=== PATIENT | male | born 1995 | race African-American/Black ===

== ENCOUNTER 2017-10-02 20:08 | Inpatient (IN) | payer OTHER ==
[~2017-10-02] VITALS: Ht 175.3 cm; Wt 82.0 kg
[2017-10-02] MEDS ORDERED: SODIUM CHLORIDE 0.9% 1,000 ML IV ONE (20:10)
[2017-10-02] MEDS ORDERED: PANTOPRAZOLE 40 MG IV ONE (20:19)
[2017-10-02] MEDS ORDERED: ONDANSETRON 2MG/ML, 2ML ONE (20:19)
[2017-10-02 20:26] LABS: BASOPHILS % (AUTO) 0 % (0-1); EOSINOPHILS % (AUTO) 0 % (1-7); LYMPHOCYTES # (AUTO) 0.76 x10^3/uL (1-3.4); LYMPHOCYTES % (AUTO) 8 % (22-44); MD NO; MEAN CORPUSCULAR HEMOGLOBIN 25.9 pg (27.5-34.5); MEAN CORPUSCULAR HGB CONC 31.9 g/dL (33.2-36.2); MEAN CORPUSCULAR VOLUME 81.3 fL (81-97); MEAN PLATELET VOLUME 7.7 fL (7.4-10.4); MONOCYTES # (AUTO) 0.34 x10^3/uL (0.2-0.8); MONOCYTES % (AUTO) 4 % (2-9); NEUTROPHILS # (AUTO) 8.23 x10^3/uL (1.8-6.8); NEUTROPHILS % (AUTO) 88 % (42-75); PLATELET COUNT 260 x10^3/uL (130-400); RED BLOOD COUNT 5.94 x10^6/uL (4.38-5.82); RED CELL DISTRIBUTION WIDTH 15.6 % (9.4-14.8)
[2017-10-02] MEDS: PLEASE ENTER ALLERGIES MC SCH (20:27)
[2017-10-02] MEDS ORDERED: PANTOPRAZOLE 40 MG IV IVP ONE (20:30)
[2017-10-02] MEDS ORDERED: ONDANSETRON 2MG/ML, 2ML IVPush ONE (20:30)
[2017-10-02] MEDS ORDERED: SODIUM CHLORIDE 0.9% 1,000ML IVBOLUS ONE (20:30)
[2017-10-02 20:34] LABS: INTERNATIONAL NORMALIZED RATIO 1.16 (0.93-1.1); PROTHROMBIN TIME 11.9 Seconds (9.6-11.5)
[2017-10-02 20:37] LABS: ALANINE AMINOTRANSFERASE 46 U/L (12-78); ALBUMIN 4.4 g/dL (3.4-5.0); ANION GAP 16 mmol/L (5-15); CALCIUM 8.5 mg/dL (8.5-10.1); CHLORIDE 109 mmol/L (98-107); CREATININE 1.71 mg/dL (0.7-1.3); SALICYLATE LEVEL < 1.7 mg/dL (2.8-20.0)
[2017-10-02 20:39] LABS: ALKALINE PHOSPHATASE 90 U/L (45-117); BILIRUBIN,TOTAL 0.2 mg/dL (0.2-1.0); TOTAL PROTEIN 7.5 g/dL (6.4-8.2)
[2017-10-02 20:42] LABS: ACETAMINOPHEN < 2 mcg/mL (10-30)
[2017-10-02] MEDS ORDERED: POLYETHYLENE GLYCOL 17 GM PACKET PO PRN (22:00)
[2017-10-02] MEDS ORDERED: BISACODYL 10 MG SUPP PR PRN (22:00)
[2017-10-02] MEDS ORDERED: HEPARIN 5,000 UNITS/ML, 1ML SQ SCH (22:00)
[2017-10-02] MEDS ORDERED: ONDANSETRON 2MG/ML, 2ML IVPush PRN (22:00)
[2017-10-02 22:41] LABS: AMPHETAMINE SCREEN, URINE Negative (Negative); BARBITURATE SCREEN, URINE Negative (Negative); BENZODIAZEPINE SCREEN, URINE Negative (Negative); CANNABINOID SCREEN, URINE Negative (Negative); COCAINE SCREEN, URINE Negative (Negative); METHADONE SCREEN, URINE Negative (Negative); OPIATE SCREEN, URINE Negative (Negative)
[2017-10-02] MEDS: SODIUM CHLORIDE 0.9% 1,000 ML IV SCH (22:46)
[2017-10-02 22:48] VITALS: BP 105/58
[2017-10-03 01:06] LABS: ANION GAP 17 mmol/L (5-15); CALCIUM 8.2 mg/dL (8.5-10.1); CHLORIDE 111 mmol/L (98-107); CREATININE 1.58 mg/dL (0.7-1.3)
[2017-10-03 02:00] VITALS: BP 120/67
[2017-10-03] MEDS: PLEASE ENTER ALLERGIES MC SCH ×2 (04:07→12:30)
[2017-10-03 05:45] LABS: BASOPHILS # (AUTO) 0.05 x10^3/uL (0-0.1); BASOPHILS % (AUTO) 1 % (0-1); EOSINOPHILS % (AUTO) 0 % (1-7); LYMPHOCYTES # (AUTO) 1.31 x10^3/uL (1-3.4); LYMPHOCYTES % (AUTO) 14 % (22-44); MD NO; MEAN CORPUSCULAR HEMOGLOBIN 26.3 pg (27.5-34.5); MEAN CORPUSCULAR HGB CONC 32.7 g/dL (33.2-36.2); MEAN CORPUSCULAR VOLUME 80.6 fL (81-97); MEAN PLATELET VOLUME 7.6 fL (7.4-10.4); MONOCYTES # (AUTO) 1.05 x10^3/uL (0.2-0.8); MONOCYTES % (AUTO) 11 % (2-9); NEUTROPHILS # (AUTO) 7.21 x10^3/uL (1.8-6.8); NEUTROPHILS % (AUTO) 75 % (42-75); PLATELET COUNT 221 x10^3/uL (130-400); RED BLOOD COUNT 5.22 x10^6/uL (4.38-5.82); RED CELL DISTRIBUTION WIDTH 15.4 % (9.4-14.8)
[2017-10-03 05:46] LABS: ALANINE AMINOTRANSFERASE 36 U/L (12-78); ALBUMIN 3.7 g/dL (3.4-5.0); ANION GAP 14 mmol/L (5-15); CALCIUM 7.7 mg/dL (8.5-10.1); CHLORIDE 110 mmol/L (98-107); CREATININE 1.96 mg/dL (0.7-1.3)
[2017-10-03 05:48] LABS: ALKALINE PHOSPHATASE 76 U/L (45-117); BILIRUBIN,TOTAL 0.3 mg/dL (0.2-1.0); TOTAL PROTEIN 6.5 g/dL (6.4-8.2)
[2017-10-03] MEDS: SODIUM CHLORIDE 0.9% 1,000 ML IV SCH ×2 (05:52→13:56)
[2017-10-03 06:40] VITALS: BP 124/64
[2017-10-03 06:41] VITALS: BP 146/79
[2017-10-03] MEDS: SENNA/DOCUSATE TABLET PO SCH (09:00)
[2017-10-03 12:12] VITALS: BP 118/54
[2017-10-03 12:30] LABS: ANION GAP 16 mmol/L (5-15); CALCIUM 7.6 mg/dL (8.5-10.1); CHLORIDE 111 mmol/L (98-107)
[2017-10-03 12:33] LABS: CREATININE 2.31 mg/dL (0.7-1.3)
[2017-10-03] MEDS: SODIUM BICARBONATE 8.4% 150 MEQ in DEXTROSE 5% 1,000 ML IV SCH (14:41)
[2017-10-03 16:45] LABS: CULTURE INDICATED? NO; MICROSCOPIC NOT IND
[2017-10-03 16:59] LABS: CREATININE,URINE RANDOM 38.1 mg/dL
[2017-10-03 20:00] VITALS: BP 123/75
[2017-10-04] MEDS: SODIUM BICARBONATE 8.4% 150 MEQ in DEXTROSE 5% 1,000 ML IV SCH ×2 (00:02→09:12)
[2017-10-04 02:35] VITALS: BP 126/62
[2017-10-04 05:26] LABS: BASOPHILS # (AUTO) 0.02 x10^3/uL (0-0.1); BASOPHILS % (AUTO) 1 % (0-1); EOSINOPHILS # (AUTO) 0.02 x10^3/uL (0-0.4); EOSINOPHILS % (AUTO) 1 % (1-7); LYMPHOCYTES # (AUTO) 1.84 x10^3/uL (1-3.4); LYMPHOCYTES % (AUTO) 42 % (22-44); MD NO; MEAN CORPUSCULAR HEMOGLOBIN 26.3 pg (27.5-34.5); MEAN CORPUSCULAR HGB CONC 32.5 g/dL (33.2-36.2); MEAN CORPUSCULAR VOLUME 80.8 fL (81-97); MEAN PLATELET VOLUME 7.9 fL (7.4-10.4); MONOCYTES # (AUTO) 0.62 x10^3/uL (0.2-0.8); MONOCYTES % (AUTO) 14 % (2-9); NEUTROPHILS # (AUTO) 1.89 x10^3/uL (1.8-6.8); NEUTROPHILS % (AUTO) 43 % (42-75); PLATELET COUNT 217 x10^3/uL (130-400); RED BLOOD COUNT 4.93 x10^6/uL (4.38-5.82); RED CELL DISTRIBUTION WIDTH 15.3 % (9.4-14.8)
[2017-10-04 05:29] LABS: ALBUMIN 3.1 g/dL (3.4-5.0); ANION GAP 7 mmol/L (5-15); CHLORIDE 109 mmol/L (98-107)
[2017-10-04 05:32] LABS: ALANINE AMINOTRANSFERASE 31 U/L (12-78); ALKALINE PHOSPHATASE 70 U/L (45-117); BILIRUBIN,TOTAL 0.5 mg/dL (0.2-1.0); CREATININE 1.96 mg/dL (0.7-1.3); TOTAL PROTEIN 5.9 g/dL (6.4-8.2)
[2017-10-04 06:40] VITALS: BP 117/61
[2017-10-04] MEDS: SENNA/DOCUSATE TABLET PO SCH (09:00)
[2017-10-04 12:11] VITALS: BP 131/69
[2017-10-04 18:46] VITALS: BP 147/76
[2017-10-05 01:57] VITALS: BP 128/67
[2017-10-05 05:25] LABS: CHLORIDE 107 mmol/L (98-107)
[2017-10-05 05:51] LABS: ALBUMIN 3.1 g/dL (3.4-5.0); ANION GAP 9 mmol/L (5-15); CALCIUM 8.1 mg/dL (8.5-10.1); CREATININE 1.37 mg/dL (0.7-1.3)
[2017-10-05 06:53] VITALS: BP 123/74
[2017-10-05] MEDS: SENNA/DOCUSATE TABLET PO SCH ×2 (09:00→09:50)
[2017-10-05 12:55] VITALS: BP 127/67
[2017-10-05 19:59] VITALS: BP 130/83
[2017-10-06 02:13] VITALS: BP 121/76
[2017-10-06 05:40] LABS: CHLORIDE 107 mmol/L (98-107)
[2017-10-06 06:03] LABS: CALCIUM 8.5 mg/dL (8.5-10.1); CREATININE 1.32 mg/dL (0.7-1.3)
[2017-10-06 06:08] LABS: ANION GAP 10 mmol/L (5-15)
[2017-10-06 08:25] VITALS: BP 142/87
[2017-10-06] MEDS: SENNA/DOCUSATE TABLET PO SCH (09:00)
[2017-10-06 13:56] VITALS: BP 132/76
[2017-10-06 19:52] VITALS: BP 132/70
[2017-10-07 00:42] VITALS: BP 131/71
[2017-10-07] MEDS: SENNA/DOCUSATE TABLET PO SCH (07:57)
[2017-10-07 08:11] VITALS: BP 134/73
[2017-10-07 14:54] VITALS: BP 142/89
== END 2017-10-07 15:58 | disposition home or self-care (01) | DRG 918 ==
LOC: ED 20:55 → EDIP 21:57 → EDBD 21:57 → 4WST 22:23 → DCLOUNGE 10-07 15:51
PROVIDERS: ADMIT Family Medicine; ATTEND Family Medicine
DX: T39.312A Poisoning by propionic acid derivatives, intentional self-harm, initial encounter (principal); N17.9 Acute kidney failure, unspecified; D68.9 Coagulation defect, unspecified; E87.2 Acidosis; D64.9 Anemia, unspecified; F12.90 Cannabis use, unspecified, uncomplicated; F43.21 Adjustment disorder with depressed mood; Z91.5 Personal history of self-harm
CPT/HCPCS: 36415; 80048; 80053; 80069; 80307; 80329; 81003; 82436; 82570; 83735; 84100; 84133; 84300; 85025; 85610; 85730; 93005; 96361; 96374; 96375; J2405; J7070; C9113; G0480; J7030